=== PATIENT | male | born 1980 | race Hispanic/Latino ===

== ENCOUNTER 2019-10-08 13:53 | Emergency (ER) | payer SELFPAY ==
[~2019-10-08] VITALS: Ht 167.6 cm; Wt 72.6 kg
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
--- NOTE | 2019-10-08 16:06 | Diagnostic Imaging Report ---
EXAM: CT Abdomen and Pelvis WITHOUT intravenous contrast INDICATION: Abdominal pain COMPARISON: None. TECHNIQUE: Abdomen and pelvis were scanned utilizing a multidetector helical scanner from the lung base to the pubic symphysis without administration of IV contrast. Coronal and sagittal reformations were obtained. IV CONTRAST: None ORAL CONTRAST: None COMPLICATIONS: None RADIATION DOSE: Total DLP: 608 mGy*cm Dose modulation, iterative reconstruction, and/or weight based adjustment of the mA/kV was utilized to reduce the radiation dose to as low as reasonably achievable. FINDINGS: LOWER THORAX: Right and left lower lobe dependent subsegmental atelectasis. HEPATOBILIARY: Mild hepatomegaly. No focal liver lesions. Normal gallbladder. SPLEEN: Mild splenomegaly to 14 cm. PANCREAS: No focal masses or ductal dilatation. ADRENALS: No adrenal nodules. KIDNEYS/URETERS: Nonobstructive 9 mm left upper pole renal calculus. No hydronephrosis or hydroureter. No right renal calculi or hydronephrosis. No solid renal mass lesion. PELVIC ORGANS/BLADDER: Unremarkable. PERITONEUM / RETROPERITONEUM: No free air or fluid. LYMPH NODES: No lymphadenopathy. VESSELS: Unremarkable. GI TRACT: The stomach is filled with ingested material. Distended stool-filled rectum. Increased stool burden throughout the distal colon. No abnormal bowel thickening. No bowel obstruction. BONES AND SOFT TISSUES: No acute osseous injury. Status post T10-L2 spinal fusion. Old fracture of the T12 vertebral body. IMPRESSION: 9 mm nonobstructive left upper pole renal calculus. No hydronephrosis. Distended stool-filled rectum and increased lobar and throughout the distal colon compatible with constipation. Postoperative findings of T10-L2 spinal fusion and old fracture of T12 vertebral body. Signed by: Renan Guardado MD on 10/08/2019 4:03 PM
[2019-10-08] MEDS ORDERED: LACTULOSE20 GM/30 M PO (17:24)
== END 2019-10-08 17:50 | disposition home or self-care (01) ==
LOC: FSED 13:53
DX: K59.00 Constipation, unspecified (principal); K59.2 Neurogenic bowel, not elsewhere classified; N31.9 Neuromuscular dysfunction of bladder, unspecified; N20.0 Calculus of kidney; G82.20 Paraplegia, unspecified
CPT/HCPCS: 74176; 80053; 81003; 85025; 99284